=== PATIENT | male | born 1935 | race Caucasian/White ===

== ENCOUNTER 2017-05-09 23:02 | Inpatient (IN) | END 2017-05-13 20:19 | DRG 180 ==

== ENCOUNTER 2017-05-13 20:39 | Inpatient (IN) | END 2017-05-24 14:15 | disposition home health service (06) | DRG 945 ==

== ENCOUNTER 2017-06-30 13:09 | Inpatient (IN) | END 2017-07-10 16:13 | disposition hospice, home (50) | DRG 391 ==